=== PATIENT | male | born 1960 | race American Indian/Alaskan Native ===

== ENCOUNTER 2020-12-12 10:40 | Outpatient (CLI) | payer OTHER ==
--- NOTE | 2020-12-12 15:31 | Cat Scan Report ---
CT ABDOMEN AND PELVIS WITH AND WITHOUT CONTRAST INDICATION / CLINICAL INFORMATION: Calculus of kidney. Cyst of kidney.. TECHNIQUE: Axial CT images were obtained through the abdomen and pelvis before and after 100 cc of IV contrast. Sagittal and coronal reformatted images. All CT scans at this location are performed using CT dose re duction for ALARA by means of automated exposure control. COMPARISON: None available. FINDINGS: LOWER CHEST: No significant abnormality. LIVER: No significant abnormality. GALLBLADDER: No significant abnormality. BILE DUCTS: No significant abnormality. PANCREAS: No significant abnormality. SPLEEN: No significant abnormality. ADRENALS: No significant abnormality. RIGHT KIDNEY and URETER: Approximately 5 cysts are identified. The largest cyst measures 6.8 cm near the superior pole. A 1 cm cyst near the superior pole demonstrates hemorrhagic change. No nephrolithi asis or hydronephrosis. LEFT KIDNEY and URETER: Mild cortical thinning is present in the left kidney. There is a large stagho rn calculus in the inferior left kidney measuring up to 4.4 cm in greatest dimension. 5 or 6 addition al calyceal stones are noted in the mid kidney measuring up to 5 mm. There is mild pyelocaliectasis i n the superior right left from the staghorn calculus. There are approximately 6 simple appearing cyst s in the left kidney measuring up to 2 cm. The left ureter is normal course and caliber and without c alculus. STOMACH and SMALL BOWEL: No significant abnormality. COLON: Minimal diverticulosis of the descending colon. No obstruction or inflammatory changes. APPENDIX: No significant abnormality. PERITONEUM: No free fluid. No free air. No fluid collection. LYMPH NODES: No significant adenopathy. AORTA and ARTERIES: No significant abnormality. IVC and VEINS: No significant abnormality. URINARY BLADDER: No significant abnormality. REPRODUCTIVE ORGANS: No significant abnormality. ADDITIONAL FINDINGS: None. SKELETAL SYSTEM: Thoracolumbar spondylosis. IMPRESSION: Left nephrolithiasis as described with mild pyelocaliectasis in the superior left kidney. Bilateral renal cysts as described. Minimal diverticulosis of the distal colon. Signer Name: Ajit Marquez Jr, MD Signed: 12/12/2020 3:26 PM Workstation Name: [id number]
== END 2020-12-12 10:41 | disposition home or self-care (01) ==
LOC: CT 10:40
PROVIDERS: ATTEND Internal Medicine
DX: N20.0 Calculus of kidney (principal); N28.1 Cyst of kidney, acquired; N13.39 Other hydronephrosis; N13.2 Hydronephrosis with renal and ureteral calculous obstruction; K57.30 Diverticulosis of large intestine without perforation or abscess without bleeding; M47.814 Spondylosis without myelopathy or radiculopathy, thoracic region
CPT/HCPCS: 36415; 74178; 82565; 84520; Q9967